=== PATIENT | female | born 1945 | race Caucasian/White ===

== ENCOUNTER → 2018-08-16 | Outpatient (CLI) | payer MEDICARE, BC ==
[~2018-08-16] MED LIST: ADVIL LIQUI-GE200 MG PO; AMITIZA8 MCG PO; AMITRIPTYLINE H25 M2 PO; ASPIRIN EC325 M1 PO; AUGMENTIN 875875 MG PO; AZATHIOPRINE50 MG PO; CELEXA10 MG PO; CIPRO500 M1 PO; CYCLOBENZAPRINE; DOXEPIN; DOXEPIN HCL100 MG PO; FISHOIL; FLAGYL500 MG PO; FOLIC ACID; IBUPROFEN 200200 M1; IBUPROFEN 200200 M1 PO; LIALDA1.2 GM PO; LIORESAL 10 MG10 MG PO; LOVASTATIN; METHOTREXATE 22.5 M1; METHOTREXATE 22.5 M1 PO; MOBIC; MULTI VITAMIN1 EACH; MULTIPLE VITAM1 EAC1 PO; MULTIPLE VITAM1 EAC4 PO; NORCO 5-325 TA1 EACH PO; NORTRIPTYLINE H50 M3 PO; PREDNISONE 5 MG5 M1 PO; PRILOSEC 20 MG20 MG PO; PRILOSEC20 MG PO; PROBIOTIC1 EAC1 PO; SPIRIVA PO; TRANSDERM-SCO1 PATC1 TD; VENTOLIN HFA INH8 GM IH; VITAMIN D-32000 UNIT PO; ZOFRAN ODT4 MG PO; [UNRECOGNIZED DRUG - OTHER] PO
== END ==
LOC: M.MRI 07:55
DX: K83.8 Other specified diseases of biliary tract (principal)

== ENCOUNTER → 2019-03-22 | Outpatient (CLI) | payer MEDICARE, BC ==
--- NOTE | 2019-03-22 14:30 | 2DMMODE ---
[place] [address] 2 D/M-MODE ECHOCARDIOGRAM Name: JOSE C HILTON Room: [facility]#: [id number] Admission: 03/22/19 Attend Phys: Hilton Hernandez, Discharge: Date of : 45 Date of Service: 03/22/19 1430 Report #: [id number] THIS REPORT FOR: //name// APPROVED REPORT Study performed: 03/22/2019 11:03:08 EXAM: Comprehensive 2D, Doppler, and color-flow Echocardiogram Patient Location: Out-Patient BSA: 1.55 HR: 65 bpm BP: 120/70 mmHg Other Information Study Quality: Good Indications Chest Pain 2D Dimensions IVSd: 8.39 (7-11mm) LVOT Diam: 19.40 (18-24mm) LVDd: 39.14 mm PWd: 7.95 (7-11mm) Ascending Ao: 24.53 (22-36mm) LVDs: 17.57 (25-40mm) Aortic Root: 26.79 mm Volumes Left Atrial Volume (Systole) LA ESV Index: 14.70 mL/m2 Aortic Valve AoV Peak Andrew.: 0.97 m/s AO Peak Gr.: 3.78 mmHg LVOT Max P.04 mmHg AO Mean Gr.: 2.07 mmHg LVOT Mean P.66 mmHg LVOT Max V: 1.00 m/s AO V2 VTI: 21.57 cm LVOT Mean V: 0.58 m/s GUILLERMO (VTI): 2.86 cm2 LVOT V1 VTI: 20.89 cm Mitral Valve E/A Ratio: 0.69 MV Decel. Time: 238.27 ms MV E Max Andrew.: 0.58 m/s MV PHT: 69.10 ms MVA (PHT): 3.18 [place]2 [place] [address] 2 D/M-MODE ECHOCARDIOGRAM Name: JOSE C HILTON Room: [facility]#: [id number] Admission: 03/22/19 Attend Phys: Hilton Hernandez, Discharge: Date of : 45 Date of Service: 03/22/19 1430 Report #: [id number] TDI E/Lateral E': 5.27 E/Medial E': 5.27 Medial E' Andrew.: 0.11 m/s Lateral E' Andrew.: 0.11 m/s Pulmonary Valve PV Peak Andrew.: 0.86 m/s PV Peak Gr.: 2.95 mmHg Tricuspid Valve RAP Estimate: 5.00 mmHg TR Peak Gr.: 31.88 mmHg RVSP: 36.88 mmHg PA Pressure: 36.88 mmHg Left Ventricle The left ventricle is normal size. There is normal LV segmental wall motion. There is normal left ventricular wall thickness. Left ventricular systolic function is normal. LVEF is 55-60%. Grade I - abnormal relaxation pattern. Right Ventricle The right ventricle is normal size. The right ventricular systolic function is normal. Atria The left atrium size is normal. The right atrium size is normal. Aortic Valve The aortic valve is normal in structure. No aortic regurgitation is present. There is no aortic valvular stenosis. Mitral Valve The mitral valve is normal in structure. Trace mitral regurgitation. No evidence of mitral valve stenosis. Tricuspid Valve The tricuspid valve is normal in structure. Mild tricuspid regurgitation. The RVSP is 35-40 mmHg. Pulmonic Valve The pulmonary valve is normal in structure. There is no pulmonic valvular regurgitation. Great Vessels The aortic root is normal in size. IVC [place] [address] 2 D/M-MODE ECHOCARDIOGRAM Name: JOSE C HILTON [id number] Admission: 03/22/19 Attend Phys: Hilton Hernandez, Discharge: Date of : 45 Date of Service: 03/22/19 1430 Report #: [id number] collapses >50% with inspiration. Pericardium There is no pericardial effusion. <Conclusion> The left ventricle is normal size. There is normal left ventricular wall thickness. Left ventricular systolic function is normal. LVEF is 55-60%. Grade I - abnormal relaxation pattern. Trace mitral regurgitation. Mild tricuspid regurgitation. The RVSP is 35-40 mmHg. IVC is normal in size and collapses >50% with inspiration. <ELECTRONICALLY SIGNED> By: Hilton Hernandez MD, FACC 03/22/19 1430 1430 1430 Hilton Hernandez MD, FACC /INF
--- NOTE | 2019-03-22 17:17 | CARDNUC ---
[place] [address] CARDIAC NUCLEAR IMAGING REPORT Name: JOSE C HILTON MAYRA Room: [facility]#: [id number] Admission: 03/22/19 Attend Phys: Hilton Hernandez, Discharge: Date of : 45 Date of Service: 03/22/19 1716 Report #: [id number] THIS REPORT FOR: //name// APPROVED REPORT Imaging Protocol: Rest Tc-99m/Stress Tc-99m 1 day Study performed: 03/22/2019 07:45:00 Indication: Chest pain, Dyspnea. Patient Location: Out-Patient Stress Tech: Caro Vasquez Stress Nurse: Swathi Rosado RN [place] Tech:THOMAS Donovan Ht: 5 ft 4 in Wt: 120 lbs BSA: 1.57 m2 BMI: 20.59 Medical History Medical History: Angina, CAD non obstructive, COPD, Fatigue, Former Smoker, Hyperlipidemia, SOB, Weakness, Emphysema, Fall Risk. Medications: ASA 81 Mg, Imdur, Lovastatin, NTG. Patient patricia taking Imdur as on medication list. Allergies: Codeine. Cardiac Risk Factors: Age, FHX of CAD, Hyperlipidemia, SOB, Past Smoker. Previous Cardiac Procedures: Cardiac Catherization LAD 2015 Pretest Chest Pain Characteristics: No chest pain Exercise History: Sedentary Physical Disabilities: Back Meds Held (24 hrs): NTG, Imdur. Resting Data Rest SPECT myocardial perfusion imaging was performed in supine position 30 minutes following the intravenous injection of 12.0 mCi of Tc-99m Sestamibi. Time of rest injection: 5 Date: 03/22/2019 The images were gated to evaluate regional wall motion and calculate left ventricular ejection fraction. Administration Route: IV Administration Site: Right Wrist Pharmacologic Stress Pharmacologic stress test was performed by injecting Regadenoson 0.4 mg IV push over 10-15 seconds immediately [place] [address] CARDIAC NUCLEAR IMAGING REPORT Name: JOSE C HILTON Room: [facility]#: [id number] Admission: 03/22/19 Attend Phys: Hilton Hernandez, Discharge: Date of : 45 Date of Service: 03/22/19 1716 Report #: [id number] injection of 34.9 mCi of Tc-99m Sestamibi. Time of stress injection: 949 Date: 03/22/2019 Administration Route: IV Administration Site: Right Wrist Gated Stress SPECT was performed 40 minutes after stress injection. The images were gated to evaluate regional wall motion and calculate left ventricular ejection fraction. Prone imaging was performed. Stress Test Details Stress Test: Pharmacologic stress testing performed using 0.4 mg of regadenoson per 5 mL given IV over 10 seconds. Reason for pharmacologic stress test: physical limitation with back discomfort.. HR Max Heart Rate (APMHR): 147 bpm Resting HR: 67 bpm Target HR (85% APMHR): 124 bpm Max HR Achieved: 89 bpm % of APMHR: 60 Recovery HR: 80 bpm BP Resting BP: 136/85 mmHg Max BP: 107/46 mmHg Recovery BP: 108/75 mmHg ECG Resting ECG: Sinus Rhythm Stress ECG: Sinus Rhythm ST Change: None Arrhythmia: None Recovery ECG: Sinus Rhythm Recovery ST Change: None Recovery Arrhythmia: None Clinical Reason for Termination: Completed protocol Stress Symptoms: Nausea, Lightheaded. Exercise duration: 00 min 00 sec Exercise capacity: 1.00 METs Tolerated Lexiscan infusion without significant cardiac symptoms. Nurse Comments A 73 year old female presented for sitting Lexiscan r/t recent chest pressure/pain that radiates to shoulders, back and [place] [address] CARDIAC NUCLEAR IMAGING REPORT Name: JOSE C HILTON Room: [facility]#: [id number] Admission: 03/22/19 Attend Phys: Hilton Hernandez, Discharge: Date of : 45 Date of Service: 03/22/19 1716 Report #: [id number] Test well tolerated. Recovery unremarkable with PO caffeine, effective. Patient was escorted by staff to Nuclear Medicine for imaging. Patient was stable and stated she felt better at that time. Stress ECG Conclusion The baseline 12-lead EKG shows sinus rhythm without significant ST segment or T wave abnormality. EKGs obtained during and post Lexiscan infusion show no significant ST segment or T-wave changes when compared baseline. There were no stress-induced arrhythmias. Study Quality Study: Good Artifact: No artifact Study Data At rest, the left ventricular ejection fraction was 75%.. Post stress, the left ventricular ejection was 77%.. TID = 0.91. Perfusion Myocardial perfusion images obtained at rest and post Lexiscan stress show uniform uptake of the radioisotope throughout the myocardium without defect. Wall Motion Normal left ventricular wall motion. Nuclear Conclusion ECG Findings: negative for ischemia Clinical Findings: negative for ischemia Nuclear Findings: negative for ischemia Exercise Capacity: not assessed Left Ventricular Function: normal Risk Study: low Myocardial perfusion images show no defect to suggest infarct or ischemia. Left ventricular systolic function appears normal on gated studies. This is a low risk study. <Conclusion> The baseline 12-lead EKG shows sinus rhythm without significant ST segment or T wave abnormality. EKGs obtained [place] [address] CARDIAC NUCLEAR IMAGING REPORT Name: MIKEL HILTONKIE MAYRA Room: [facility] Darshan#: [id number] Admission: 03/22/19 Attend Phys: Hilton Hernandez, Discharge: Date of : 45 Date of Service: 03/22/19 1716 Report #: [id number] infusion show no significant ST segment or T-wave changes when compared baseline. There were no stress-induced arrhythmias. <ELECTRONICALLY SIGNED> By: Hilton Hernandez MD, FACC 03/22/191715 15 15 Hilton Hernandez MD, FACC /INF
== END ==
LOC: M.CRD 02-21 10:57 → M.NUC 07:34
DX: R07.9 Chest pain, unspecified (principal); R06.02 Shortness of breath

== ENCOUNTER → 2020-05-15 | Outpatient (CLI) | payer MEDICARE, BC ==
--- NOTE | 2020-05-22 00:03 | PF ---
[address] [address] PULMONARY FUNCTION REPORT Name: JOSE C HILTON Room: [facility].#: [id number] Admission: 05/15/20 Attend Phys: Makenzie Faustin Discharge: Date of : 45 Report #: [id number] THIS REPORT FOR: cc: Makenzie Faustin,Makenzie CELESTIN ~ Diego Arnold MD DATE OF SERVICE: 05/15/2020 The FEV1/FVC ratio is markedly decreased to 35% only. The forced vital capacity is mildly decreased to 79%, but the FEV1 is markedly decreased to 37%. The [id number] is decreased to only 11%. After the administration of a bronchodilator, there is no significant increase in any of these values. The patient's post-bronchodilator FEV1 is noted to be 800 mL. The total lung capacity is normal at 95% with residual volume increased to 115%. The DLCO as adjusted for hemoglobin is decreased to 25% only. IMPRESSION: 1. Severe obstruction without evidence of reversibility. 2. There is mild hyperinflation secondary to severe obstruction. 3. DLCO as adjusted for hemoglobin is markedly decreased to only 25%. <ELECTRONICALLY SIGNED> By: Diego Arnold MD 05/22/20 0003 01 [id number] Arnold MD /nt
== END ==
LOC: M.PUL 05-14 11:00
PROVIDERS: ATTEND Nurse Practitioner Family
DX: J44.9 Chronic obstructive pulmonary disease, unspecified (principal)

== ENCOUNTER → 2021-04-22 | Outpatient (CLI) | payer MEDICARE, BC ==
[~2021-04-22] MED LIST changes: +ALBUTEROL2.5 MG/31 INH; +ARTHRITIS PAIN100 GM TOP; +ASA81BEC PO; +CEFDINIR300 MG PO; +CELEXA 20 MG TA20 MG PO; +CRESTOR10 MG PO; +DAILY VALUE1 EAC1 PO; +DOXEPIN 75 MG C75 M1 PO; +DOXYCYCLINE 10100 MG PO; +FORMOTEROL20 MCG/2 M INH; +HYDROXYCHLOROQ200 M1 PO; +NITROSTAT0.4 M1 SUBLING; -PRILOSEC 20 MG20 MG PO; +PRILOSEC OTC20 MG PO; +PULMICORT0.5 MG/2 M INH; +RAYOS5 MG PO; +TYLENOL325 M1 PO
== END ==
LOC: M.RAD 11:34
PROVIDERS: ATTEND Family Medicine
DX: J98.11 Atelectasis (principal); J98.4 Other disorders of lung; J86.9 Pyothorax without fistula; J44.9 Chronic obstructive pulmonary disease, unspecified